=== PATIENT | male | born 1970 | race Caucasian/White ===

== ENCOUNTER 2024-09-09 09:07 | Outpatient (CLI) | payer OTHER, SELFPAY | END 2024-09-09 09:08 | disposition home or self-care (01) | LOC: AMB 09-10 00:44 | PROVIDERS: PCP Family Medicine; Visit Provider Family Medicine | DX: E11.65 Type 2 diabetes mellitus with hyperglycemia (principal) | CPT/HCPCS: A0425; A0427 ==